=== PATIENT | female | born 1960 | race Asian ===

== ENCOUNTER 2021-10-25 17:12 | Emergency (ER) | payer OTHER ==
[~2021-10-25] VITALS: Ht 162.6 cm; Wt 62.1 kg
[2021-10-25 17:27] VITALS: BP 164/87
[2021-10-25] MEDS ORDERED: LIDOCAINE MPF 1% 10 MG/ML VIAL INJ ONE (18:00)
[2021-10-25] MEDS ORDERED: BACITRACIN OINT 500 UNITS/GM PKT TP ONE ×2 (18:00→19:24)
[2021-10-25] MEDS ORDERED: LIDOCAINE MPF 1% 5 ML ONE ×2 (19:24→19:26)
[2021-10-25] MEDS ORDERED: BACI1PAC6 TP (20:10)
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
[2021-10-25 20:29] VITALS: BP 154/84
--- NOTE | 2021-10-25 20:30 | NUR ---
Patient discharged with v/s stable. Written and verbal after care instructions given and explained. Patient alert, oriented and verbalized understanding of instructions. Ambulatory with steady gait. All questions addressed prior to discharge. ID band removed. Patient advised to follow up with PMD. Rx of BACITRACIN given. Patient educated on indication of medication including possible reaction and side effects. Opportunity to ask questions provided and answered. A/OX4, VSS, UNLABORED BREATHING, AMBULATORY, AND CALM DEMEANOR.
== END 2021-10-25 20:30 | disposition home or self-care (01) ==
LOC: MED 17:12
DX: S01.112A Laceration without foreign body of left eyelid and periocular area, initial encounter (principal); Z79.2 Long term (current) use of antibiotics; W20.8XXA Other cause of strike by thrown, projected or falling object, initial encounter; Y93.89 Activity, other specified; Y92.009 Unspecified place in unspecified non-institutional (private) residence as the place of occurrence of the external cause; Y99.8 Other external cause status
CPT/HCPCS: 12013; 99282; J2001